=== PATIENT | male | born 1940 | race Caucasian/White ===

== ENCOUNTER → 2017-07-20 | Emergency (ER) | payer MEDICARE ==
[~2017-07-20] VITALS: Ht 180.3 cm; Wt 104.3 kg
[~2017-07-20] MED LIST: ACET-819 PO; AMLO10TA4 PO; ASCO500C14 PO; ASPI-624 PO; CA/D1TAB3 PO; CALC10009 PO; DICY10CA26 PO; DIPH25TA31 PO; FAMO20TA5 PO; GABA-488 PO; GLUC-110 PO; HYDR-34 PO; HYDR-700 PO; INSU100C SQ; INSU100C4 SQ; INSU100C7 SQ; MELA10TA2 PO; MULT-850 PO; NS IV 1000 ML 1,000 ML IV ONE; OMEG-9 PO; OMEP20CA6 PO; PIPERACILLIN SODIUM/TAZOBACTAM 2.25 GM in NS (IVPB) 100 ML IV ONE; ROPI0.5T PO; SMV10T PO; TORS20TA3 PO; VALS320T8 PO
[2017-07-20 14:22] VITALS: BP 88/52
[2017-07-20 14:41] LABS: ABG BASE EXCESS 2.9 MMOL/L (-2.5-2.5); ABG OXYGEN SATURATION 99 % (94-100); ABG PCO2 36 MMHG (35-45); ABG PH 7.48 (7.37-7.43); ABG PO2 88 MMHG (79-93); ABG TCO2 27.6 MMOL/L (21.0-31.0)
[2017-07-20 14:43] LABS: ALLENS TEST YES-POS
[2017-07-20 14:44] LABS: INSPIRED O2 2; PATIENT TEMP 97.1; VENTILATOR NO
[2017-07-20 14:50] LABS: BASOPHILS % (AUTO) 0 % (0-10); EOSINOPHILS # (AUTO) 0.3 10^3/uL (0.0-0.3); EOSINOPHILS % (AUTO) 3 % (0-10); HEMATOCRIT 34 % (40-54); HEMOGLOBIN 11.7 G/DL (13.3-17.7); LYMPHOCYTES # (AUTO) 2.1 X 10^3 (1.0-4.0); LYMPHOCYTES % (AUTO) 23 % (12-44); MEAN CORPUSCULAR HEMOGLOBIN 32 PG (25-34); MEAN CORPUSCULAR HGB CONC 34 G/DL (32-36); MEAN CORPUSCULAR VOLUME 93 FL (80-99); MEAN PLATELET VOLUME 9.8 FL (7.4-10.4); MONOCYTES # (AUTO) 0.9 X 10^3 (0.0-1.0); MONOCYTES % (AUTO) 10 % (0-12); NEUTROPHILS # (AUTO) 5.9 X 10^3 (1.8-7.8); NEUTROPHILS % (AUTO) 64 % (42-75); PLATELET COUNT 264 10^3/uL (130-400); RED BLOOD COUNT 3.68 10^6/uL (4.35-5.85); RED CELL DISTRIBUTION WIDTH 12.8 % (10.0-14.5); WHITE BLOOD COUNT 9.2 10^3/uL (4.3-11.0)
[2017-07-20 14:56] LABS: MAGNESIUM 3.3 MG/DL (1.8-2.4)
[2017-07-20 15:03] LABS: ALANINE AMINOTRANSFERASE < 6 U/L (0-55); ALBUMIN 3.6 GM/DL (3.2-4.5); ALKALINE PHOSPHATASE 113 U/L (40-136); BILIRUBIN,TOTAL 0.4 MG/DL (0.1-1.0); BUN/CREATININE RATIO 13; CALCIUM 9.2 MG/DL (8.5-10.1); CARBON DIOXIDE 28 MMOL/L (21-32); CHLORIDE 96 MMOL/L (98-107); CREATININE SERUM 7.28 MG/DL (0.60-1.30); GFR ESTIMATED 7; GLUCOSE 91 MG/DL (70-105); POTASSIUM 3.7 MMOL/L (3.6-5.0); SODIUM 140 MMOL/L (135-145); TOTAL PROTEIN 6.8 GM/DL (6.4-8.2)
--- NOTE | 2017-07-20 15:04 | Diagnostic Imaging Report ---
INDICATION: Confusion. Altered mental state. COMPARISON: No previous for comparison at this time. FINDINGS: Portable chest shows the lungs to be well aerated and clear. The heart is not enlarged. There is no hilar adenopathy. No pulmonary edema. No pneumothorax or pleural effusions. No bony abnormalities. IMPRESSION: Normal portable chest. Dictated by: Dictated on workstation # [id number]
[2017-07-20 15:10] LABS: MYOGLOBIN SERUM 259.5 NG/ML (10.0-92.0)
--- NOTE | 2017-07-20 15:22 | ED General ---
General Chief Complaint: Altered Mental Status Stated Complaint: GROGGY,CANT STAND UP Nursing Triage Note: PT OUT OF CAR X2 EMS STAFF, PT HAS ALTERED MENTAL STATUS, PT IS RESPONSIVE TO VERBAL STIMULI BUT IS LETHARGIC. Nursing Sepsis Screen: No Definite Risk Source of Information: Patient, Family Exam Limitations: Physical Impairments History of Present Illness Date Seen by Provider: Jul 20, 2017 Time Seen by Provider: 14:32 Initial Comments Here by private vehicle with report of altered mental status. Patient was essentially unresponsive on arrival. He apparently has recently started peritoneal dialysis. Blood pressure normal in the 150s but was noted to be low. Apparently had episode of near unresponsiveness overnight and gave juice in the thought that it might be low blood sugar. His blood sugar was 511 this morning but he was still acting very weak and sluggish. Apparently he took a half a dose of his Diovan last night instead of the regular full dose because that have been given him some hypotension. Patient moaning but would arouse with stimuli. Did answer a few questions but does not really remember what's going on and is very confused. History limited due to patient's current condition. Timing/Duration: 12 Hours Severity: Moderate Associated Systoms: No Chest Pain, No Cough, No Fever/Chills, No Nausea/ Vomiting, No Shortness of Air, Weakness Allergies and Home Medications Allergies Coded Allergies: iodine (Unverified Allergy, Unknown, DIZZY AND LIGHTHEADED, 08/26/13) tetanus toxoid, adsorbed (Unverified Allergy, Unknown, HIVES, 08/26/13) Home Medications Acetaminophen 500 Mg Tablet, 1,000 MG PO HS, (Reported) Amlodipine Besylate 10 Mg Tablet, 10 MG PO DAILY, (Reported) Ascorbic Acid 500 Mg Capsule.sa, 500 MG PO DAILY, (Reported) Aspirin 81 Mg Tablet, 81 MG PO DAILY, (Reported) Ca/D3/Mag#11/Zinc/Practice Coordinator/Jalen/Bor 1 Each Tablet, 1 TAB PO BID, (Reported) Calcium Carbonate 1,000 Mg Tab.chew, 1,000 MG PO Q4H PRN for HEARTBURN, ( Reported) PRN HEARTBURN Dicyclomine Hcl 10 Mg Capsule, 10 MG PO BID, (Reported) Diphenhydramine Hcl 25 Mg Cap, 25 MG PO HS PRN for SLEEP, (Reported) Famotidine 20 Mg Tablet, 20 MG PO HS, (Reported) Gabapentin 300 Mg Capsule, 300 MG PO BID, (Reported) Glucosamine Hcl/Chondr León A Na 1 Each Capsule, 1 TAB PO DAILY, (Reported) Hydrocodone Bit/Acetaminophen 1 Each Tablet, 1 EACH PO Q 4 - 6 HRS PRN PRN for PAIN, (Reported) Hydroxyzine Hcl 25 Mg Tablet, 25 MG PO TID PRN for ITCHING, (Reported) PRN ITCHING Insulin Glargine,Hum.rec.anlog 100 Unit/1 Ml Cartridge, 15 UNIT SQ HS, (Reported ) Insulin Glargine,Hum.rec.anlog 100 Unit/1 Ml Cartridge, 6-8 UNIT SQ DAILY, ( Reported) Insulin Lispro 100 Unit/1 Ml Cartridge, 4-6 UNIT SQ BREAKFAST, (Reported) Insulin Lispro 100 Unit/1 Ml Cartridge, 6-8 UNIT SQ LUNCH,SUPPER, (Reported) Insulin Lispro 100 Unit/1 Ml Cartridge, 1-2 UNIT SQ WITH SNACKS, (Reported) Melatonin 10 Mg Tablet, 10 MG PO HS PRN for SLEEP, (Reported) PRN SLEEP Multivitamins W-Minerals/Lut 1 Each Tablet, 1 TAB PO DAILY, (Reported) Chassell-3/Dha/Epa/Fish Oil 1 Each Capsule.dr, 1,400 MG PO BID, (Reported) Omeprazole 20 Mg Capsule.dr, 20 MG PO HS, (Reported) Ropinirole Hcl 0.5 Mg Tablet, 0.5 MG PO BID, (Reported) Simvastatin 10 Mg Tab, 10 MG PO HS, (Reported) Torsemide 20 Mg Tablet, 20 MG PO DAILY, (Reported) Valsartan 320 Mg Tablet, 320 MG PO HS, (Reported) Constitutional: see HPI, No chills, No fever EENTM: no symptoms reported Respiratory: no symptoms reported Cardiovascular: see HPI, No chest pain, syncope Gastrointestinal: No nausea, No vomiting Genitourinary: no symptoms reported Musculoskeletal: No muscle pain, muscle weakness Skin: no symptoms reported All Other Systems Reviewed Negative Unless Noted: Yes Past Gydcpwp-[id number]-[id number] Hx Patient Social History Alcohol Use: Denies Use Recreational Drug Use: No Smoking Status: Never a Smoker Recent Foreign Travel: No Contact w/Someone Who Travel: No Recent Infectious Disease Expo: No Immunizations Up To Date Date of Pneumonia Vaccine: Apr 21, 2012 Date of Influenza Vaccine: Mar 11, 2013 Surgeries History of Surgeries: Yes Surgeries: Coronary Stent, Orthopedic Respiratory History of Respiratory Disorde: No Cardiovascular History of Cardiac Disorders: Yes Cardiac Disorders: High Cholesterol, Hypertension Neurological History of Neurological Disord: Yes Neurological Disorders: Parkinson's Disease Genitourinary History of Genitourinary Disor: Yes Genitourinary Disorders: Renal Failure, Dialysis Gastrointestinal History of Gastrointestinal Di: No Endocrine History of Endocrine Disorders: Yes Endocrine Disorders: Diabetes, Insulin dep Cancer History of Cancer: Yes Reviewed Nursing Assessment Reviewed/Agree w Nursing PMH: Yes Family Medical History Significant Family History: No Pertinent Family Hx Physical Exam-Suspected Sepsis Physical Exam Vital Signs Vital Signs - First Documented 07/20/17 14:22 Temp 97.1 Pulse 49 Resp 17 B/P (MAP) 88/52 (64) Pulse Ox 96 Capillary Refill : Less Than 3 Seconds Blood Pressure Mean: 64 General Appearance: Moderate Distress (nearly unresponsive), Obese HEENT: PERRL/EOMI, Pharynx Normal Neck: Non Tender, Supple Respiratory: Lungs Clear, Normal Breath Sounds Cardiovascular: No Murmur, Bradycardia, Other (irregular rate that appears to be sinus arrhythmia on monitor) Gastrointestinal: Normal Bowel Sounds, Non Tender, Soft, Other (peritoneal dialysis shunt right lower quadrant) Back: Normal Inspection, No CVA Tenderness, No Vertebral Tenderness Extremity: Normal Range of Motion, Non Tender, Pedal Edema (1+ to the knee bilateral) Neurologic/Psychiatric: Alert, Oriented x3 Skin: normal color, warm/dry Focused Exam Evaluation Lactate Level Laboratory Tests 07/20/17 15:15: Lactic Acid Level 1.47 Lactic Acid Level Laboratory Tests Test 07/20/17 15:15 Lactic Acid Level 1.47 MMOL/L (0.50-2.00) Progress/Results/Core Measures Suspected Sepsis Recent Fever Within 48 Hours: No Infection Criteria Present: None New/Unexplained Altered Menta: No Sepsis Screen: No Definite Risk Sepsis Diagnosis: SIRS Temperature:97.1 Pulse: 49 Respiratory Rate: 17 Laboratory Tests 07/20/17 14:28: White Blood Count 9.2 Blood Pressure 88 /52 Mean: 64 Laboratory Tests 07/20/17 15:15: Lactic Acid Level 1.47 Laboratory Tests 07/20/17 14:28: Creatinine 7.28H, INR Comment 1.0, Platelet Count 264, Total Bilirubin 0.4 Results/Orders Lab Results Laboratory Tests Test 07/20/17 14:28 07/20/17 14:34 07/20/17 14:41 07/20/17 15:15 Range/Units White Blood Count 9.2 4.3-11.0 10^3/uL Red Blood Count 3.68 L 4.35-5.85 10^6/uL Hemoglobin 11.7 L 13.3-17.7 G/DL Hematocrit 34 L 40-54 % Mean Corpuscular Volume 93 80-99 FL Mean Corpuscular Hemoglobin 32 25-34 PG Mean Corpuscular Hemoglobin Concent 34 32-36 G/DL Red Cell Distribution Width 12.8 10.0-14.5 % Platelet Count 264 130-400 10^3/uL Mean Platelet Volume 9.8 7.4-10.4 FL Neutrophils (%) (Auto) 64 42-75 % Lymphocytes (%) (Auto) 23 12-44 % Monocytes (%) (Auto) 10 0-12 % Eosinophils (%) (Auto) 3 0-10 % Basophils (%) (Auto) 0 0-10 % Neutrophils # (Auto) 5.9 1.8-7.8 X 10^3 Lymphocytes # (Auto) 2.1 1.0-4.0 X 10^3 Monocytes # (Auto) 0.9 0.0-1.0 X 10^3 Eosinophils # (Auto) 0.3 0.0-0.3 10^3/uL Basophils # (Auto) 0.0 0.0-0.1 10^3/uL Prothrombin Time 13.0 12.2-14.7 SEC INR Comment 1.0 0.8-1.4 Activated Partial Thromboplast Time 30 24-35 SEC Sodium Level 140 135-145 MMOL/L Potassium Level 3.7 3.6-5.0 MMOL/L Chloride Level 96 L 98-107 MMOL/L Carbon Dioxide Level 28 21-32 MMOL/L Anion Gap 16 H 5-14 MMOL/L Blood Urea Nitrogen 94 H 7-18 MG/DL Creatinine 7.28 H 0.60-1.30 MG/DL Estimat Glomerular Filtration Rate 7 BUN/Creatinine Ratio 13 Glucose Level 91 70-105 MG/DL Calcium Level 9.2 8.5-10.1 MG/DL Magnesium Level 3.3 H 1.8-2.4 MG/DL Total Bilirubin 0.4 0.1-1.0 MG/DL Aspartate Amino Transf (AST/SGOT) 19 5-34 U/L Alanine Aminotransferase (ALT/SGPT) < 6 0-55 U/L Alkaline Phosphatase 113 40-136 U/L Myoglobin 259.5 H 10.0-92.0 NG/ML Troponin I < 0.30 <0.30 NG/ML Total Protein 6.8 6.4-8.2 GM/DL Albumin 3.6 3.2-4.5 GM/DL TSH [place] Testing 1.30 0.35-4.94 UIU/ML Blood Gas Puncture Site RT RAD Blood Gas Patient Temperature 97.1 Arterial Blood pH 7.48 H 7.37-7.43 Arterial Blood Partial Pressure CO2 36 35-45 MMHG Arterial Blood Partial Pressure O2 88 79-93 MMHG Arterial Blood HCO3 26 23-27 MMOL/L Arterial Blood Total CO2 27.6 21.0-31.0 MMOL/L Arterial Blood Oxygen Saturation 99 94-100 % Arterial Blood Base Excess 2.9 H -2.5-2.5 MMOL/L Nikhil Test YES-POS Blood Gas Ventilator Setting NO Blood Gas Inspired Oxygen 2 Glucometer 105 70-110 MG/DL Lactic Acid Level 1.47 0.50-2.00 MMOL/L Micro Results Microbiology 07/20/17 Influenza Types A,B Antigen (COOKIE) - Final, Complete My Orders Orders - OMAR HART MD Arterial Blood Gas (07/20/17 14:38) Cbc With Automated Diff (07/20/17 14:37) Comprehensive Metabolic Panel (07/20/17 14:37) Lactic Acid Analyzer (07/20/17 14:37) Blood Culture (07/20/17 14:37) Sputum Culture (07/20/17 14:37) Ua Culture If Indicated (07/20/17 14:37) Protime With Inr (07/20/17 14:37) Partial Thromboplastin Time (07/20/17 14:37) Chest 1 View, Ap/Pa Only (07/20/17 14:37) O2 (07/20/17 14:37) Saline Lock/Iv-Start (07/20/17 14:37) Saline Lock/Iv-Start (07/20/17 14:37) Ekg Tracing (07/20/17 14:37) Troponin I (07/20/17 14:37) Vital Signs Adult Sepsis Patie Q1H (07/20/17 14:37) Remove Rings In Anticipation O (07/20/17 14:37) Thyroid Analyzer (07/20/17 14:37) Ns Iv 1000 Ml (Sodium Chloride 0.9%) (07/20/17 14:37) Accucheck Stat ONCE (07/20/17 14:37) Magnesium (07/20/17 14:37) Myoglobin Serum (07/20/17 14:37) Monitor-Rhythm Ecg Trace Only (07/20/17 14:37) Lipid Panel (07/21/17 06:00) Ct Head Wo (07/20/17 16:00) Influenza A And B Antigens (07/20/17 16:14) Piperacillin Sodium/Tazobactam (Zosyn Vi (07/20/17 17:15) Medications Given in ED Current Medications Medications Dose Ordered Sig/Anirudh Route Start Time Stop Time Status Last Admin Dose Admin Piperacillin Sod/ Tazobactam Sod 2.25 gm/Sodium Chloride 100 ml @ 200 mls/hr ONCE ONCE IV 07/20/17 17:15 07/20/17 17:44 07/20/17 17:22 200 MLS/HR Sodium Chloride 1,000 ml @ 0 mls/hr Q0M ONCE IV 07/20/17 14:37 07/20/17 14:39 DC 07/20/17 14:25 1,000 MLS/HR Vital Signs/I&O Vital Sign - Last 12Hours 07/20/17 14:22 Temp 97.1 Pulse 49 Resp 17 B/P (MAP) 88/52 (64) Pulse Ox 96 Capillary Refill : Less Than 3 Seconds Blood Pressure Mean: 64 Progress Note : Progress Note Seen and evaluated. IV, labs, EKG, chest x-ray, UA, blood cultures and lactic acid ordered. Patient hypotensive with heart rate is down into the 30s. Normal saline 1 L bolus 2 ordered and this did help the blood pressure. Patient is on peritoneal dialysis. Family reports that he did have falls recently but did not think he hit his head. Due to the current presentation, we will go ahead and get CT head although patient does not appear to be suffering from a trauma. 1605: Patient doing better and is much more responsive. Blood pressure 97/51 with a heart rate of 50 although this is bearable and is still going down into the 30s. Anticipate transfer. Patient's primary Center is [facility]. 1700: I have discussed the case with Dr. Messer, on-call hospitalist who accepts patient for admission there and asked that I talk with the marketing analytics lead on-call. 1710: I did discuss the case with Dr. May, marketing analytics lead on-call who accepts the patient in consult and transfer. We will initiate Zosyn 2.25 g IV. Patient was noted to have second degree heart block type I. This was discussed with the marketing analytics lead as well. All findings and concerns were discussed with the patient and family who agree with transfer. Patient will go by ground EMS. Pending call back from [facility] for bed assignment. ECG Initial ECG Impression Date: Jul 20, 2017 Initial ECG Impression Time: 14:29 Initial ECG Rate: 52 Comment Sinus arrhythmia with first-degree AV block. Normal axis. No evidence of ST elevation GA. Similar to previous of 26 August 2013. Interpreted by me. Diagnostic Imaging Diagonstic Imaging: Xray Plain Films/CT/US/NM/MRI: chest Comments VIA [place], [place] NAME: AMRIT LI [facility] REC#: [id number] PT STATUS: REG ER : 1940 PHYSICIAN: OMAR HART MD ADMIT DATE: 07/20/17/ER Draft Date of Exam:07/20/17 CHEST 1 VIEW, AP/PA ONLY INDICATION: Confusion. Altered mental state. COMPARISON: No previous for comparison at this time. FINDINGS: Portable chest shows the lungs to be well aerated and clear. The heart is not enlarged. There is no hilar adenopathy. No pulmonary edema. No pneumothorax or pleural effusions. No bony abnormalities. IMPRESSION: Normal portable chest. Dictated on workstation # [id number] Dict: 07/20/17 1454 Trans: 07/20/17 1504 [id number] Interpreted by: VIVIANA HAMEED MD Electronically signed by: Reviewed: Reviewed by Me Diagonstic Imaging: CT Plain Films/CT/US/NM/MRI: head Comments NAME: AMRIT LI [facility] REC#: [id number] PT STATUS: REG ER : 1940 PHYSICIAN: OMAR HART MD ADMIT DATE: 07/20/17/ER Draft Date of Exam:07/20/17 CT HEAD WO PROCEDURE: CT head without contrast. TECHNIQUE: Multiple contiguous axial images were obtained through the brain without the use of intravenous contrast. INDICATION: Altered mental status. COMPARISON: None. FINDINGS: Moderate generalized cerebral and cerebellar parenchymal volume loss. Moderate leukoaraiosis. No CT evidence of a territorial infarction. No intracranial hemorrhage, mass effect, hydrocephalus or extra-axial fluid collections. The visualized paranasal sinuses and mastoids are clear. IMPRESSION: No acute intracranial CT findings. Dictated on workstation # [id number] Dict: 07/20/17 1637 Trans: 07/20/17 1643 CVB [id number] Interpreted by: VALERY HARE MD Electronically signed by: Reviewed: Reviewed by Me Departure Impression Impression: Primary Impression: Second degree heart block Additional Impressions: End-stage renal disease on peritoneal dialysis Symptomatic bradycardia Disposition: SHT-TRM HOSP Condition: Stable Transfer Time Spoke to Accepting Phy: 16:55 Transfer Time: 17:00 Transfer Facility: [place], [place], Dr. Messer accepting Method of Transfer: EMS Departure-Patient Inst. Referrals: BIJAN TOM MD (PCP) Primary Care Physician JOSE F PANG MD (Family) Primary Care Physician OMAR HART MD Jul 20, 2017 15:22
--- NOTE | 2017-07-20 16:44 | Diagnostic Imaging Report ---
PROCEDURE: CT head without contrast. TECHNIQUE: Multiple contiguous axial images were obtained through the brain without the use of intravenous contrast. INDICATION: Altered mental status. COMPARISON: None. FINDINGS: Moderate generalized cerebral and cerebellar parenchymal volume loss. Moderate leukoaraiosis. No CT evidence of a territorial infarction. No intracranial hemorrhage, mass effect, hydrocephalus or extra-axial fluid collections. The visualized paranasal sinuses and mastoids are clear. IMPRESSION: No acute intracranial CT findings. Dictated by: Dictated on workstation # [id number]
--- OUTSIDE RECORDS SUMMARY | 2017-07-22 08:44 | XMS REPORT | Continuity of Care Document ---
Author Author [facility] Organization [facility] Address Unknown Phone Unavailable Allergies Active Description Code Type Severity Reaction Onset Reported/Identified Relationship to Patient Clinical Status Yes BACLOFEN 1292 Drug Allergy N/A N/A Yes IODINE 5933 Drug Allergy N/A N/A Yes TETANUS Drug Allergy N/A N/A Medications Medication Packaging Start Date Stop Date Route Dosage Sig [id number] 12/11/2012 ORAL daily [id number] 04/06/2014 ORAL three times daily [id number] 10/19/2014 ORAL q PM [id number] 10/21/2014 ORAL [id number] 03/10/2015 ORAL Problems There is no data. Procedures There is no data. Results Test Result Range PT panel in platelet poor plasma by coagulation assay - 07/20/17 14:28 Prothrombin time (PT) in platelet poor plasma by coagulation assay 13.0 s 12.2-14.7 INR in platelet poor plasma or blood by coagulation assay 1.0 0.8-1.4 Activated partial thromboplastin time (aPTT) in platelet poor plasma bycoagulation assay - 07/20/17 14:28 Activated partial thromboplastin time (aPTT) in platelet poor plasma bycoagulation assay 30 s 24-35 Magnesium - 07/20/17 14:28 Magnesium 3.3 mg/dL 1.8-2.4 Complete blood count (CBC) with automated white blood cell (WBC) differential - 07/20/17 14:28 Blood leukocytes automated count (number/volume) 9.2 10*3/uL 4.3-11.0 Blood erythrocytes automated count (number/volume) 3.68 10*6/uL 4.35-5.85 Venous blood hemoglobin measurement (mass/volume) 11.7 g/dL 13.3-17.7 Blood hematocrit (volume fraction) 34 % 40-54 Automated erythrocyte mean corpuscular volume 93 [foz_us] 80-99 Automated erythrocyte mean corpuscular hemoglobin (mass per erythrocyte) 32 pg 25-34 Automated erythrocyte mean corpuscular hemoglobin concentration measurement ( mass/volume) 34 g/dL 32-36 Automated erythrocyte distribution width ratio 12.8 % 10.0-14.5 Automated blood platelet count (count/volume) 264 10*3/uL 130-400 Automated blood platelet mean volume measurement 9.8 [foz_us] 7.4-10.4 Automated blood neutrophils/100 leukocytes 64 % 42-75 Automated blood lymphocytes/100 leukocytes 23 % 12-44 Blood monocytes/100 leukocytes 10 % 0-12 Automated blood eosinophils/100 leukocytes 3 % 0-10 Automated blood basophils/100 leukocytes 0 % 0-10 Blood neutrophils automated count (number/volume) 5.9 10*3 1.8-7.8 Blood lymphocytes automated count (number/volume) 2.1 10*3 1.0-4.0 Blood monocytes automated count (number/volume) 0.9 10*3 0.0-1.0 Automated eosinophil count 0.3 10*3/uL 0.0-0.3 Automated blood basophil count (count/volume) 0.0 10*3/uL 0.0-0.1 Comprehensive metabolic panel - 07/20/17 14:28 Serum or plasma sodium measurement (moles/volume) 140 mmol/L 135-145 Serum or plasma potassium measurement (moles/volume) 3.7 mmol/L 3.6-5.0 Serum or plasma chloride measurement (moles/volume) 96 mmol/L 98-107 Carbon dioxide 28 mmol/L 21-32 Serum or plasma anion gap determination (moles/volume) 16 mmol/L 5-14 Serum or plasma urea nitrogen measurement (mass/volume) 94 mg/dL 7-18 Serum or plasma creatinine measurement (mass/volume) 7.28 mg/dL 0.60-1.30 Serum or plasma urea nitrogen/creatinine mass ratio 13 NRG Serum or plasma creatinine measurement with calculation of estimated glomerular filtration rate 7 NRG Serum or plasma glucose measurement (mass/volume) 91 mg/dL 70-105 Serum or plasma calcium measurement (mass/volume) 9.2 mg/dL 8.5-10.1 Serum or plasma total bilirubin measurement (mass/volume) 0.4 mg/dL 0.1-1.0 Serum or plasma alkaline phosphatase measurement (enzymatic activity/volume) 113 U/L 40-136 Serum or plasma aspartate aminotransferase measurement (enzymatic activity/ volume) 19 U/L 5-34 Serum or plasma alanine aminotransferase measurement (enzymatic activity/volume ) < U/L 0-55 Serum or plasma protein measurement (mass/volume) 6.8 g/dL 6.4-8.2 Serum or plasma albumin measurement (mass/volume) 3.6 g/dL 3.2-4.5 Myoglobin, serum - 07/20/17 14:28 Myoglobin, serum 259.5 ng/mL 10.0-92.0 Serum or plasma troponin i.cardiac measurement (mass/volume) - 07/20/17 14:28 Serum or plasma troponin i.cardiac measurement (mass/volume) < ng/ mL <0.30 Serum or plasma thyrotropin measurement by detection limit <=0.05 miu/l (units/ volume) - 07/20/17 14:28 Serum or plasma thyrotropin measurement by detection limit <=0.05 miu/l (units/ volume) 1.30 u[iU]/mL 0.35-4.94 Arterial blood gas measurement - 07/20/17 14:34 Blood pCO2 36 mm[Hg] 35-45 Blood pO2 88 mm[Hg] 79-93 Arterial blood bicarbonate measurement (moles/volume) 26 mmol/L 23-27 Arterial blood base excess by calculation 2.9 mmol/L -2.5 -2.5 Arterial blood oxygen saturation measurement 99 % 94-100 * Inhaled oxygen flow rate 2 NRG Arterial blood pH measurement with patient temperature correction 7.48 7.37-7.43 Arterial blood carbon dioxide, total measurement (moles/volume) 27.6 mmol/L 21.0-31.0 Body site RT RAD NRG Assessment of wrist artery patency prior to arterial puncture YES- POS NRG Setting of ventilation mode NO NRG Measurement of body temperature 97.1 NRG Capillary blood glucose measurement by glucometer (mass/volume) - 07/20/17 14: 41 Capillary blood glucose measurement by glucometer (mass/volume) 105 mg/dL 70-110 Blood lactic acid measurement (moles/volume) - 07/20/17 15:15 Blood lactic acid measurement (moles/volume) 1.47 mmol/L 0.50-2.00 Bacterial blood culture - 07/20/17 15:15 Bacterial blood culture NG NRG Bacterial blood culture - 07/20/17 15:34 Bacterial blood culture NG NRG Influenza virus A and B antigen detection - 07/20/17 16:13 FLU RESULT NEGATIVE FOR INFLUENZA A AND B ANTIGENS BY IA NRG Encounters ACCT No. Visit Date/Time Discharge Status Pt. Type Provider Facility Loc./Unit Complaint [id number] 12/31/2013 08:31:00 12/31/2013 23:59:59 CLS Outpatient [id number] 09/09/2013 08:54:00 09/09/2013 14:30:00 DIS Outpatient [id number] 08/26/2013 10:09:00 08/26/2013 23:59:59 CLS Outpatient [id number] 07/20/2017 14:44:00 Document Registration [id number] 04/05/2017 14:44:42 04/05/2017 14: 44:42 DIS Outpatient [id number] 04/04/2017 09:56:08 04/04/2017 23: 59:59 CLS Outpatient [id number] 04/03/2017 16:44:05 04/03/2017 23: 59:59 CLS Outpatient [id number] 04/03/2017 16:26:48 04/03/2017 23: 59:59 CLS Outpatient [id number] 04/03/2017 15:12:54 04/03/2017 23: 59:59 CLS Outpatient [id number] 04/03/2017 14:30:09 04/03/2017 23: 59:59 CLS Outpatient [id number] 04/03/2017 14:19:48 04/03/2017 23: 59:59 CLS Outpatient [id number] 03/29/2017 10:58:47 03/29/2017 23: 59:59 CLS Outpatient [id number] 03/28/2017 15:44:50 03/28/2017 23: 59:59 CLS Outpatient [id number] 03/28/2017 15:43:04 03/28/2017 23: 59:59 CLS Outpatient [id number] 03/23/2017 11:05:46 03/23/2017 23: 59:59 CLS Outpatient [id number] 03/23/2017 11:00:22 03/23/2017 23: 59:59 CLS Outpatient [id number] 03/20/2017 14:14:12 03/20/2017 23: 59:59 CLS Outpatient [id number] 03/20/2017 14:13:59 03/20/2017 23: 59:59 CLS Outpatient [id number] 02/26/2017 11:43:40 02/26/2017 23: 59:59 CLS Outpatient [id number] 10/10/2016 12:24:24 10/10/2016 23: 59:59 CLS Outpatient [id number] 10/09/2016 16:04:05 10/09/2016 23: 59:59 CLS Outpatient [id number] 10/09/2016 15:43:16 10/09/2016 23: 59:59 CLS Outpatient [id number] 10/09/2016 15:37:17 10/09/2016 23: 59:59 CLS Outpatient [id number] 10/09/2016 14:30:27 10/09/2016 14: 30:27 DIS Outpatient [id number] 10/09/2016 14:28:44 10/09/2016 14: 28:44 DIS Outpatient [id number] 10/09/2016 14:28:42 10/09/2016 14: 28:42 DIS Outpatient [id number] 10/09/2016 14:28:27 10/09/2016 14: 28:27 DIS Outpatient [id number] 07/05/2016 11:45:46 07/05/2016 23: 59:59 CLS Outpatient [id number] 07/04/2016 14:43:24 07/04/2016 14: 43:24 DIS Outpatient [id number] 07/03/2016 16:45:12 07/03/2016 23: 59:59 CLS Outpatient [id number] 07/03/2016 14:37:11 07/03/2016 23: 59:59 CLS Outpatient [id number] 07/03/2016 14:18:14 07/03/2016 23: 59:59 CLS Outpatient [id number] 07/03/2016 13:26:47 07/03/2016 23: 59:59 CLS Outpatient [id number] 07/03/2016 13:29:50 07/03/2016 13: 29:50 DIS Outpatient [id number] 06/28/2016 15:33:27 06/28/2016 23: 59:59 CLS Outpatient [id number] 06/28/2016 15:12:48 06/28/2016 23: 59:59 CLS Outpatient [id number] 05/29/2016 08:25:59 05/29/2016 08: 25:59 DIS Outpatient [id number] 04/25/2016 09:21:46 04/25/2016 23: 59:59 CLS Outpatient [id number] 04/20/2016 13:28:12 04/20/2016 13: 28:12 DIS Outpatient [id number] 01/31/2016 23:11:37 01/31/2016 23: 11:37 ACT Outpatient [id number] 01/31/2016 23:08:54 01/31/2016 23: 08:54 ACT Outpatient [id number] 01/31/2016 23:07:50 01/31/2016 23: 07:50 ACT Outpatient [id number] 01/31/2016 23:07:49 01/31/2016 23: 07:49 ACT Outpatient [id number] 01/31/2016 23:06:59 01/31/2016 23: 06:59 ACT Outpatient [id number] 01/31/2016 23:06:08 01/31/2016 23: 06:08 ACT Outpatient [id number] 01/31/2016 23:04:57 01/31/2016 23: 04:57 ACT Outpatient [id number] 01/31/2016 22:41:15 01/31/2016 22: 41:15 ACT Outpatient [id number] 01/31/2016 22:41:06 01/31/2016 22: 41:06 ACT Outpatient [id number] 01/31/2016 22:41:04 01/31/2016 22: 41:04 ACT Outpatient [id number] 01/31/2016 22:41:03 01/31/2016 22: 41:03 ACT Outpatient [id number] 01/31/2016 22:41:02 01/31/2016 22: 41:02 ACT Outpatient [id number] 01/31/2016 21:27:26 01/31/2016 21: 27:27 ACT Outpatient [id number] 01/31/2016 18:43:48 01/31/2016 18: 43:48 ACT Outpatient [id number] 01/31/2016 18:41:32 01/31/2016 18: 41:32 ACT Outpatient [id number] 05/04/2015 15:42:44 05/04/2015 23: 59:59 CLS Outpatient [id number] 05/04/2015 11:47:32 05/04/2015 11: 47:35 DIS Outpatient [id number] 05/03/2015 15:40:32 05/03/2015 15: 40:35 DIS Outpatient [id number] 05/03/2015 15:34:28 05/03/2015 15: 34:32 DIS Outpatient [id number] 05/03/2015 15:14:12 05/03/2015 15: 14:14 DIS Outpatient [id number] 05/03/2015 15:10:54 05/03/2015 15: 10:54 DIS Outpatient [id number] 05/03/2015 14:30:56 05/03/2015 14: 30:56 DIS Outpatient [id number] 05/03/2015 14:27:10 05/03/2015 14: 27:12 DIS Outpatient [id number] 05/03/2015 14:26:57 05/03/2015 14: 27:01 DIS Outpatient [id number] 05/03/2015 14:26:02 05/03/2015 14: 26:04 DIS Outpatient [id number] 04/30/2015 13:15:24 04/30/2015 13: 15:24 DIS Outpatient [id number] 04/30/2015 11:09:00 04/30/2015 11: 09:00 DIS Outpatient [id number] 04/30/2015 11:08:57 04/30/2015 11: 08:58 DIS Outpatient [id number] 10/21/2014 08:39:24 10/21/2014 23: 59:59 CLS Outpatient [id number] 10/20/2014 10:50:39 10/20/2014 23: 59:59 CLS Outpatient [id number] 10/19/2014 16:45:07 10/19/2014 23: 59:59 CLS Outpatient [id number] 10/19/2014 15:19:23 10/19/2014 23: 59:59 CLS Outpatient [id number] 10/19/2014 16:32:54 10/19/2014 16: 32:54 DIS Outpatient [id number] 10/19/2014 15:41:02 10/19/2014 15: 41:04 DIS Outpatient [id number] 09/16/2014 11:04:24 09/16/2014 11: 04:25 DIS Outpatient [id number] 09/16/2014 11:03:56 09/16/2014 11: 03:56 DIS Outpatient [id number] 04/03/2017 14:37:00 Document Registration [id number] 10/16/2016 16:12:22 Document Registration [id number] 10/09/2016 14:45:00 Document Registration [id number] 07/04/2016 08:56:28 Document Registration [id number] 07/04/2016 07:14:37 Document Registration [id number] 07/03/2016 13:34:00 Document Registration [id number] 01/31/2016 16:48:23 Document Registration [id number] 01/31/2016 16:47:58 Document Registration [id number] 01/31/2016 16:44:00 Document Registration [id number] 05/04/2015 15:45:36 Document Registration [id number] 05/04/2015 15:43:26 Document Registration [id number] 05/03/2015 14:39:00 Document Registration [id number] 03/11/2015 09:38:28 Document Registration [id number] 03/11/2015 09:38:25 Document Registration [id number] 03/11/2015 09:38:23 Document Registration [id number] 03/11/2015 09:38:20 Document Registration [id number] 03/11/2015 09:38:17 Document Registration [id number] 03/11/2015 09:38:12 Document Registration [id number] 03/11/2015 09:38:09 Document Registration [id number] 03/11/2015 09:38:06 Document Registration [id number] 10/21/2014 08:40:10 Document Registration [id number] 10/21/2014 08:40:07 Document Registration [id number] 10/21/2014 08:40:04 Document Registration [id number] 10/21/2014 08:40:02 Document Registration [id number] 10/21/2014 08:39:58 Document Registration [id number] 10/20/2014 09:25:31 Document Registration [id number] 10/20/2014 09:25:12 Document Registration [id number] 10/20/2014 06:55:47 Document Registration [id number] 10/20/2014 06:55:44 Document Registration [id number] 10/20/2014 06:55:42 Document Registration [id number] 10/20/2014 06:55:39 Document Registration [id number] 10/20/2014 06:55:36 Document Registration [id number] 10/20/2014 06:55:33 Document Registration [id number] 10/20/2014 06:55:30 Document Registration [id number] 10/20/2014 06:55:28 Document Registration [id number] 10/20/2014 06:55:25 Document Registration [id number] 10/20/2014 06:55:22 Document Registration [id number] 10/20/2014 06:55:20 Document Registration [id number] 10/20/2014 06:55:17 Document Registration [id number] 10/20/2014 06:55:14 Document Registration [id number] 10/20/2014 06:55:12 Document Registration [id number] 10/20/2014 06:53:33 Document Registration [id number] 10/20/2014 06:53:30 Document Registration [id number] 10/20/2014 06:53:27 Document Registration [id number] 10/20/2014 06:53:25 Document Registration [id number] 10/20/2014 06:53:22 Document Registration [id number] 10/20/2014 06:53:19 Document Registration [id number] 10/20/2014 06:53:17 Document Registration [id number] 10/20/2014 06:53:14 Document Registration [id number] 10/20/2014 06:53:11 Document Registration [id number] 10/20/2014 06:53:08 Document Registration [id number] 10/20/2014 06:53:06 Document Registration [id number] 10/19/2014 16:47:39 Document Registration [id number] 10/19/2014 15:31:00 Document Registration
== END ==
LOC: EDUNIT# 14:22 → ER 14:23
DX: I13.2 Hypertensive heart and chronic kidney disease with heart failure and with stage 5 chronic kidney disease, or end stage renal disease (principal); E11.22 Type 2 diabetes mellitus with diabetic chronic kidney disease; I44.1 Atrioventricular block, second degree; N18.6 End stage renal disease; E78.00 Pure hypercholesterolemia, unspecified; Z79.82 Long term (current) use of aspirin; Z79.4 Long term (current) use of insulin; Z95.1 Presence of aortocoronary bypass graft; Z99.2 Dependence on renal dialysis; Z88.8 Allergy status to other drugs, medicaments and biological substances; Z91.048 Other nonmedicinal substance allergy status
CPT/HCPCS: 36415; 70450; 71045; 80053; 82805; 82962; 83605; 83735; 83874; 84443; 84484; 85025; 85610; 85730; 87040; 87804; 93005; 93041; 96365